=== PATIENT | female | born 1995 | race Caucasian/White ===

== ENCOUNTER 2018-01-22 00:25 | Emergency (ER) | payer OTHER ==
[2018-01-22] MEDS ORDERED: NS 1,000 ML IV ONE (00:42)
[2018-01-22] MEDS ORDERED: ONDANSETRON 4 MG/2 ML VIAL IVP ONE (00:42)
[2018-01-22] MEDS ORDERED: HYOSCYAMINE SULFATE 0.125 MG TAB PO ONE ×2 (00:56→01:31)
[2018-01-22 01:03] LABS: PLATELET COUNT 267 10^3/uL (150-400)
--- NOTE | 2018-01-22 01:15 | EDPHY ---
H & P Stated Complaint: Epigastric pain for 3 days, now vomiting since midnight. Time Seen by Provider: 01/22/18 00:39 HPI/ROS: This pt. describes a 3 day hx. of epigastric pain described as crampy in nature, onset while eating sanchez. Since that time, she's had intermittent epigastric pain lasting a few hours at a time with no clear exacerbating or alleviating factors. Tonight, shortly BAND MANAGER while at rest she described an increase in the intensity of the pain from prior moderate intensity to 8/10 ( current). The pain does not radiate. Pt. had an episode of vomiting shortly BAND MANAGER described as yellowish emesis without coffee-ground or bright blood with ongoing nausea currently. Her mother brought her in by private vehicle for further evaluation of the symptoms. She has never had these symptoms before. ROS: Constitutional: No high fevers or chills. No fatigue. HEENT: She has minimal coryza that she attributes to seasonal allergies and a rare cough. She explains that she had pneumonia 2 months ago as taken while for the cough clear but she feels that his nearly resolved. Pulmonary: No pleuritic pain. No shortness of breath. Cardiovascular: No lightheadedness. No chest pain. GI: No GERD symptoms. No belching. She does feel slightly bloated. She has no lower belly pain. She denies any radiation of the pain. She reports normal bowel movements although she admits occasional constipation and her most recent bowel movement was yesterday. She explains that is not uncommon for her to go 2 days without a bowel movement. No dark tarry stools. : Last menstrual period was normal timing 5 days ago. No urinary sx's. Integumentary: no pallor, jaundice or rash. Neuro: No complaints Complete ROS is o/w negative. Source: Patient Exam Limitations: No limitations - Personal History LMP (Females 10-55): 8-14 Days Ago Current Tetanus/Diphtheria Vaccine: Unsure Current Tetanus Diphtheria and Acellular Pertussis (TDAP): Unsure - Medical/Surgical History PMH: o/w healthy except for ADHD No hx. of abd. surg. Hx Asthma: No Hx Chronic Respiratory Disease: No Hx Diabetes: No Hx Cardiac Disease: No Hx Renal Disease: No Hx Cirrhosis: No Hx Alcoholism: No Hx HIV/AIDS: No Hx Splenectomy or Spleen Trauma: No Other PMH: ADHD, HSV2. - Family History Significant Family History: No pertinent family hx - Social History Smoking Status: Never smoked Alcohol Use: Occasionally Drug Use: None Additional Social History: Patient is her last year of college in [place] studying elementary education - Physical Exam Exam: General Appearance: Alert, no distress. Eyes: Pupils equal and round no pallor or injection. ENT, Mouth: Mucous membranes moist. Respiratory: There are no retractions, lungs are clear to auscultation. Cardiovascular: Regular rate and rhythm. Gastrointestinal: normoactive BS with mild epigastric tenderness. No guarding or rebound. No organomegaly Back: No CVA tenderness Neurological: GCS 15 Skin: Warm and dry, no rashes. Musculoskeletal: Neck is supple nontender. Extremities are symmetrical, full range of motion. Psychiatric: Mood and affect are normal DIFFERENTIAL DIAGNOSIS: After history and physical exam differential diagnosis was considered for gastritis, viral illness, gastric ulcer, hepatitis, cholecystitis, Constitutional: Initial Vital Signs Temperature (C) 36.6 C 01/22/18 00:30 Heart Rate 80 01/22/18 00:30 Respiratory Rate 18 01/22/18 00:30 Blood Pressure 128/88 H 01/22/18 00:30 O2 Sat (%) 97 01/22/18 00:30 O2 Delivery Mode Room Air Allergies/Adverse Reactions: No Known Allergies Allergy (Verified 01/22/18 00:40) Home Medications: Medication Instructions Recorded Dextroamphetamine/Amphetamine 30 mg PO DAILY 09/14/11 [Adderall Xr 30 mg Capsule] Bcp 01/22/18 Docusate Sodium [Colace 100 MG (*)] 100 mg PO BID PRN #20 cap 01/22/18 Ondansetron Odt [Zofran Odt] 4 - 8 mg PO Q4PRN PRN #4 tab 01/22/18 Valacyclovir HCl 01/22/18 Medical Decision Making ED Course/Re-evaluation: IV, normal saline bolus Levsin sublingual, Maalox p. O., Zofran IV, Toradol with partial relief of discomfort Labs: CBC is normal, comp metabolic panel is normal, hCG is negative, urinalysis is normal Discussion: Patient with epigastric pain of unclear etiology associated with constipation. We ruled out hepatitis, cholecystitis, ectopic , UTI, doubt ulcer given lack of historical findings would suggest this diagnosis and lack of anemia or other concerning findings. Constipation may be playing into this patient's crampy pain. I counseled regarding this in some detail as well as food intolerance/food allergies. Will plan to treat her with stool softeners and antacids with plan to follow up with her primary care physician. She understands need to return emergency department should she develop any worsening of symptoms despite treatment plan - Data Points Laboratory Results: Laboratory Results 01/22/18 00:50 01/22/18 00:50 Medications Given: Discontinued Medications Al Hydroxide/Mg Hydroxide (Maalox Susp) 30 ml PO EDNOW ONE Stop: 01/22/18 01:19 Last Admin: 01/22/18 01:23 Dose: 30 ml Hyoscyamine Sulfate (Levsin, Hyomax-Sl) 0.125 mg PO EDNOW ONE Stop: 01/22/18 00:57 Last Admin: 01/22/18 01:05 Dose: 0.125 mg Hyoscyamine Sulfate (Levsin, Hyomax-Sl) 0.125 mg PO EDNOW ONE Stop: 01/22/18 01:32 Last Admin: 01/22/18 01:38 Dose: 0.125 mg Sodium Chloride (Ns) 1,000 mls @ 0 mls/hr IV EDNOW ONE; Wide Open PRN Reason: Protocol Stop: 01/22/18 00:43 Last Admin: 01/22/18 01:00 Dose: 1,000 mls Ketorolac Tromethamine (Toradol) 30 mg IVP EDNOW ONE Stop: 01/22/18 01:33 Last Admin: 01/22/18 01:38 Dose: 30 mg Ondansetron HCl (Zofran) 4 mg IVP EDNOW ONE Stop: 01/22/18 00:43 Last Admin: 01/22/18 01:00 Dose: 4 mg Ondansetron HCl (Zofran Odt 4 Mg Prepack#2) 1 btl TAKEHOME EDNOW ONE Stop: 01/22/18 01:37 Last Admin: 01/22/18 02:06 Dose: 1 btl Departure - Departure Disposition: Home, Routine, Self-Care Clinical Impression: Epigastric abdominal pain, Constipation, Vomiting Condition: Good Instructions: Ondansetron (By mouth), Constipation (ED), Acute Nausea and Vomiting (ED), Acute Abdominal Pain (ED) Additional Instructions: Diagnoses:. Epigastric pain 2. Vomiting 3. Constipation Plan: For pain, try Levsin, Tylenol and ibuprofen in addition if needed. Zofran if needed for nausea or vomiting Drink plenty fluids. Colace stool softener-2 day Metamucil tendon 20 g a day Milk a magnesia-30 mL a day MiraLax 17 g 2 times a day [place] oil 1-2 tbsp a day Enemas as needed Consider tapering off of your opiate narcotic. Above plan until the having 1 more bowel movements today. If you start having loose stools then dropped 1 of these therapies that time starting from the bottom going up for the top the list. Call your primary care physician to arrange follow-up appointment for further evaluation Return for any significant worsening despite the treatment plan Referrals: Patient,NotPresent [Primary Care Provider] - As per Instructions Prescriptions: Docusate Sodium [Colace 100 MG (*)] 100 mg PO BID PRN #20 cap PRN Reason: Constipation Ondansetron Odt [Zofran Odt] 4 - 8 mg PO Q4PRN PRN #4 tab PRN Reason: Vomiting
[2018-01-22] MEDS ORDERED: MAG HYDROX/AL HYDROX/SIMETH 30 ML UDCUP PO ONE (01:18)
[2018-01-22] MEDS ORDERED: KETOROLAC 30 MG/1 ML SDV IVP ONE (01:32)
[2018-01-22] MEDS ORDERED: ONDANSETRON 4MG PREPACK#2 BTL TAKEHOME ONE (01:36)
[2018-01-22 02:09] VITALS: BP 113/74
== END 2018-01-22 01:57 | disposition home or self-care (01) ==
LOC: CED 00:25
DX: K59.00 Constipation, unspecified (principal); E86.9 Volume depletion, unspecified
CPT/HCPCS: 80053-PO; 83690-PO; 84703-PO; 85025-PO; 96374; J1885; J2405